=== PATIENT | male | born 1950 | race African-American/Black ===

== ENCOUNTER 2018-07-27 11:49 | Inpatient (IN) ==
[2018-07-27] MEDS ORDERED: CITRATE OF MAGNESIA PO STA (12:17)
--- NOTE | 2018-07-27 13:04 | CT ---
EXAM: CT of the abdomen pelvis without contrast History: Abdominal pain and constipation. Technique: Multiplanar CT images through the abdomen pelvis were obtained without the administration of IV contrast Findings: Lung bases are clear. No acute osseous abnormalities. Multiple metastatic sclerotic lesi ons are seen within the thoracic and lumbar spine as well as the sacrum and iliac bones. No gallstones identified by CT. Mild atherosclerotic vascular calcifications. No renal stones and n o hydronephrosis. Adrenal glands are unremarkable. No peripancreatic inflammation. No focal liver or splenic lesions are identified within limitations of a noncontrast study. The appendix is normal. Diverticulosis of the descending colon. Large amount of colonic stool especially seen distending t he rectosigmoid colon. There is mild perirectal inflammation. No free air and no ascites. Evaluati on for lymph nodes is limited due to the lack of contrast administration but no bulky adenopathy is s een. No bladder wall thickening. Prostate is not enlarged. Subcutaneous edema within the anterior abdominal wall probably from injections. Impression: 1. Large amount colonic stool consistent with constipation. 2. Multiple metastatic osseous lesions of unknown primary source.
[2018-07-27] MEDS ORDERED: NARCAN IM STA (13:22)
--- NOTE | 2018-07-27 15:36 | ED.PDOC ---
General ED Provider: Dr. KELLY TALBOT Chief Complaint: Constipation Stated Complaint: constipation/abdominal pain Time Seen by Physician: 12:00 (no B.M. X 2 WEEKS ) Mode of Arrival: Wheelchair Information Source: Patient Exam Limitations: No limitations Nursing and Triage Documentation Reviewed and Agree: Yes Does patient meet sepsis criteria?: No System Inflammatory Response Syndrome: Not Applicable Sepsis Protocol: For patient's 13 years and over: Temp is 96.8 and below OR 101 and greater Pulse >90 BPM Resp >20/minute Acutely Altered Mental Status Are patient's symptoms suggestive of a new infection, such as: -Pneumonia -Skin, Soft Tissue -Endocarditis -UTI -Bone, Joint Infection -Implantable Device -Acute Abdominal Infection -Wound Infection -Meningitis -Blood Stream Catheter Infection -Unknown GI Complaint Exam - Abdominal Pain Complaint/Exam Onset: Gradual Duration: 2 WEEKS Symptoms Are: Still present Timing: Intermittent Initial Severity: Moderate Current Severity: Moderate Location of Pain: Diffuse Radiates To: Denies: Chest, Back, Flank, LLQ, RLQ, Inguinal Character: Reports: Aching Aggravating: Reports: None Alleviating: Reports: None Associated Signs and Symptoms: Reports: Constipation. Denies: Diaphoresis, Fever, Cough, Chest pain, Dizziness, Back pain, Blood in stool, Dysuria, Urinary frequency, Decreased urine output, Decreased appetite, Discharge, Nausea , Vomiting, Diarrhea, Decreased activity Related History: Reports: Similar episode AAA Risk Factors: Reports: None Cardiac Risk Factors: Reports: None Testicular Torsion Risk Factors: Reports: None Surgical Obstruction Risk Factors: Reports: None Related Surgical History: Reports: None Abdominal Findings: Present: None Differential Diagnoses: Bowel Obstruction, Constipation Review of Systems - Review Of Systems Constitutional: Reports: Malaise, Weakness, Loss of appetite Eyes: Reports: No symptoms Ears, Nose, Mouth, Throat: Reports: No symptoms Respiratory: Reports: No symptoms Cardiac: Reports: No symptoms GI: Reports: Abdominal pain, Constipated : Reports: No symptoms Musculoskeletal: Reports: No symptoms Skin: Reports: No symptoms Neurological: Reports: No symptoms Endocrine: Reports: No symptoms Hematologic/Lymphatic: Reports: No symptoms All Other Systems: Reviewed and Negative Past Medical History - Past Medical History Previously Healthy: No Endocrine: Reports: Unknown Cardiovascular: Reports: Unknown Respiratory: Reports: None Hematological: Reports: Unknown Gastrointestinal: Reports: Other (CANCER SEE BELOW WITH METS) Genitourinary: Reports: None Neuro/Psych: Reports: None Musculoskeletal: Reports: None Cancer: Reports: Other (PANCREATIC) - Surgical History General Surgical History: Reports: None - Family History Family History: Reports: None - Social History Smoking Status: Former smoker Hx Substance Use: No Alcohol Screening: None - Immunizations Tetanus Shot up to Date: Yes Physical Exam - Physical Exam Appearance: Well-appearing, No pain distress, Well-nourished Eyes: MILLI, EOMI, Conjunctiva clear ENT: Ears normal, Nose normal, Oropharynx normal Respiratory: Airway patent, Breath sounds clear, Breath sounds equal, Respirations nonlabored Cardiovascular: RRR, Pulses normal, No rub, No murmur GI/: Soft, No masses, Bowel sounds normal, No Organomegaly, Tender Musculoskeletal: Normal strength, ROM intact, No edema, No calf tenderness Skin: Warm, Dry, Normal color Neurological: Sensation intact, Motor intact, Reflexes intact, Cranial nerves intact, Alert, Oriented Psychiatric: Affect appropriate, Mood appropriate Interpretation - Radiology Interpretation Radiology Interpretation By: Radiologist Radiology Results: Positive (CONSTIPATION) Physician Notification - Case Discussed Physician Notified: HOSTPITALIST Time of Notification: 15:36 Admit To: Inpatient Critical Care Note - Critical Care Note Total Time (mins): 0 Course - Course Hematology/Chemistry: 07/27/18 12:30 07/27/18 12:30 Orders, Labs, Meds: Lab Review 07/27/18 07/27/18 12:30 12:30 WBC 11.29 H RBC 3.19 L Hgb 8.5 L Hct 26.3 L MCV 82.4 MCH 26.6 L MCHC 32.3 RDW Coeff of Prashant 13.8 Plt Count 335 Immature Gran % (Auto) 1.0 Neut % (Auto) 80.0 Lymph % (Auto) 12.8 Vance % (Auto) 5.6 Eos % (Auto) 0.2 Baso % (Auto) 0.4 Immature Gran # (Auto) 0.1 Neut # (Auto) 9.0 H Lymph # (Auto) 1.5 Vance # (Auto) 0.6 Eos # (Auto) 0.0 Baso # (Auto) 0.1 Sodium 132.4 L Potassium 3.65 Chloride 97.4 L Carbon Dioxide 19.9 L Anion Gap 18.75 BUN 11.5 Creatinine 0.54 L Estimated GFR (MDRD) 184.00 BUN/Creatinine Ratio 21.29 Glucose 254.3 H Calcium 9.48 Total Bilirubin 0.74 AST 38.6 ALT 31.5 Alkaline Phosphatase 212.7 H Total Protein 8.10 Albumin 4.63 Globulin 3.47 Albumin/Globulin Ratio 1.33 Orders Category Date Time Status Enema [ED ENEMA/RECTAL TUBE] .ONCE EMERGENCY 07/27/18 12:18 Active CBC W/ AUTO DIFF Stat LAB 07/27/18 12:30 Completed COMPREHENSIVE METABOLIC PANEL Stat LAB 07/27/18 12:30 Completed Magnesium Citrate [Citrate of Magnesia] MEDS 07/27/18 12:17 Discontinued 10 oz PO ONCE STA Naloxone HCl [Narcan] MEDS 07/27/18 13:22 Discontinued 0.4 mg IM ONCE STA CT ABDOMEN/PELVIS WO CONTRAST Stat RADS 07/27/18 12:15 Completed Medications Discontinued Medications Generic Name Dose Route Start Last Admin Trade Name Freq PRN Reason Stop Dose Admin Magnesium Citrate 10 oz 07/27/18 12:17 07/27/18 13:39 Citrate Of Magnesia PO 07/27/18 12:18 10 oz ONCE STA Administration Naloxone HCl 0.4 mg 07/27/18 13:22 07/27/18 13:39 Narcan IM 07/27/18 13:23 0.4 mg ONCE STA Administration Vital Signs: Temp Pulse Resp BP Pulse Ox 07/27/18 11:49 99.3 F 114 H 20 160/83 H 96 Departure - Departure Time of Disposition: 15:37 Disposition: ADMITTED INPATIENT Discharge Problem: Constipation, Anemia Instructions: Constipation (ED) Condition: Good Pt referred to PMD for follow-up: Yes IPMP verified?: No Additional Instructions: Please call your Family Physician as soon as possible to schedule a follow-up appointment. Allergies/Adverse Reactions: Allergies No Known Allergies Allergy (Unverified 07/27/18 11:55) Home Medications: Ambulatory Orders Cefdinir 300 mg PO Q12H 07/27/18 Hydrocodone Bit/Acetaminophen [Lulu 10-325] 10 - 325 mg PO Q6H PRN 07/27/18 Hydromorphone HCl [Dilaudid] 2 mg PO Q4H PRN 07/27/18 Morphine Sulfate [Morphine Sulfate ER] 60 mg PO BID 07/27/18 Pregabalin [Lyrica] 100 mg PO TID 07/27/18 Trazodone HCl 1,000 mg PO BEDTIME 07/27/18 Disposition Discussed With: Patient
[2018-07-27] MEDS ORDERED: SODIUM CHLORIDE 1,000 ML IV SCH (16:00)
[2018-07-27] MEDS ORDERED: HYDROMORPHONE HCL 2 MG PO PRN (16:19)
[2018-07-27] MEDS ORDERED: NORCO 10-325 PO PRN (16:19)
[2018-07-27] MEDS ORDERED: DILAUDID PO PRN (16:25)
[2018-07-27] MEDS ORDERED: ZOFRAN 4 MG/2 ML IVP PRN (16:34)
[2018-07-27] MEDS ORDERED: ZOFRAN 4 MG/2 ML ONE (16:35)
[2018-07-27] MEDS ORDERED: DILAUDID 1 MG/ML SYRINGE IVP STA (16:39)
[2018-07-27] MEDS ORDERED: DILAUDID 1 MG/ML SYRINGE ONE (16:44)
[2018-07-27 17:00] VITALS: BMI 10.1
[2018-07-27] MEDS: DILAUDID 1 MG/ML SYRINGE IVP SCH ×4 (17:21→23:06)
[2018-07-27] MEDS ORDERED: INFUVITE ADULT IV ONE ×2 (17:34→18:28)
[2018-07-27] MEDS: OMNICEF PO SCH ×2 (17:35→20:45)
[2018-07-27] MEDS ORDERED: INFUVITE ADULT 10 ML in D5%-1/2NS-KCL 20 MEQ/L IV SOL 1,000 ML IV SCH (18:00)
[2018-07-27] MEDS ORDERED: POTASSIUM CHLORIDE 20 MEQ VIAL 20 MEQ, INFUVITE ADULT 10 ML in SODIUM CHLORIDE 1,000 ML IV SCH (18:30)
[2018-07-27] MEDS: INFUVITE ADULT 10 ML in SODIUM CHLORIDE 0.45%-KCL 20 MEQ 1,000 ML IV SCH (18:33)
[2018-07-27] MEDS: LYRICA PO SCH (20:45)
[2018-07-27] MEDS: MS CONTIN PO SCH (20:45)
[2018-07-27] MEDS ORDERED: NON-FORMULARY MEDICATION (Pregabalin [Lyrica] 100 MG) PO SCH (21:00)
[2018-07-27] MEDS ORDERED: DESYREL PO SCH (21:00)
[2018-07-27] MEDS ORDERED: NON-FORMULARY MEDICATION (Morphine Sulfate [Morphine Sulfate Er] 60 MG) PO SCH (21:00)
[2018-07-27] MEDS ORDERED: TRAZODONE HCL PO SCH (21:00)
[2018-07-28] MEDS: DILAUDID 1 MG/ML SYRINGE IVP SCH ×5 (00:56→12:17)
[2018-07-28 05:10] VITALS: BP 120/79; TEMP 98.3
[2018-07-28] MEDS ORDERED: INFUVITE ADULT IV ONE (06:03)
[2018-07-28] MEDS: INFUVITE ADULT 10 ML in SODIUM CHLORIDE 0.45%-KCL 20 MEQ 1,000 ML IV SCH (06:10)
[2018-07-28] MEDS: OMNICEF PO SCH (08:50)
[2018-07-28] MEDS: LYRICA PO SCH (08:50)
[2018-07-28] MEDS: MS CONTIN PO SCH (08:51)
[2018-07-28] MEDS ORDERED: MILK OF MAGNESIA PO SCH (09:00)
[2018-07-28] MEDS ORDERED: HYDROMORPHONE HCL 2 MG PO PRN (10:11)
[2018-07-28] MEDS ORDERED: DILAUDID PO PRN (10:13)
--- NOTE | 2018-07-30 14:00 | SSS ---
DATE OF SERVICE: 07/27/18 - ADMIT; 07/28/18 DISCHARGE CHIEF COMPLAINT: Abdominal pain, no bowel movements for the last 14 days. SOURCE: The patient plus daughter. HISTORY OF PRESENT ILLNESS The daughter told me that they came to [place] bringing her dad since they have some idea that his life is under challenge so he can enjoy. The patient developed lower abdominal pain and was brought to the emergency room and was seen at 11:49 a.m. The patient in the emergency room had CT scan of the abdomen and pelvis because of the lower abdominal pain suprapubic showing large amounts of colonic stool consistent with constipation, multiple metastatic osseous lesions of unknown primary probably prostate. This patient has prostate carcinoma known since 2007. He had a pancreatic carcinoma diagnosed in April 2018. This patient received an enema in the emergency room but I am not able to find what kind, whether it is a soap suds enema or saline. Narcan 0.4 mg IM and magnesium citrate 10 ozs. I was contacted by the emergency room M.D. for possible admission because of the abdominal pain which is probably secondary to the constipation. This patient was seen at the emergency room in [place], 07/21/18, because of abdominal pain described as burning and more or less upper abdominal. The patient was kept for a day or more at the hospital and discharged. The patient did complain of chest pain also at that time and the patient was judged to be secondary to the metastatic disease. Chemotherapy was suspended but the Keytruda is continued. The patient had burn right big toe treated at [facility] and [facility]. The problems aside from the prostatic carcinoma diagnosed 2007, pancreatic carcinoma diagnosed May 05, 2018 are diabeetes mellitus on insulin. GERD, hypertension, hyperlipidemia. FAMILY HISTORY: Sister had diabetes mellitus; mother had hypertension; grandfather had prostatic carcinoma. PAST PERSONAL HISTORY: Consisted of brain surgery, subdural hematoma and shoulder replacement surgery, right. MEDICATIONS: (prior to this admission) Hydrocodone/APAP 10/325 one q.6hr p.r.n. Cefdinir 300 mg capsule q.12hr Morphine Sulfate ER 60 mg twice a day Pregabalin 100 mg three times a day Trazodone 100 mg at bedtime Hydromorphone 2 mg q.4hr p.r.n. for pain NovoLog continue subcutaneously before meals Victoza 1.2 mg subcutaneously daily Zytiga 500 mg tablet two tablets daily Lipitor 10 mg daily Megestrol 40 mg/cc one cc twice a day Metformin 1000 mg twice a day Omeprazole 40 mg daily ALLERGIES: NKDA REVIEW OF SYSTEMS: CONSTITUTIONAL: The patient is alert with no chills, no fever. Pain and fatigue because of the pain. 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 No syncopal episode. No seizure events. VISUAL: Denies any blurred vision, double vision or loss of vision. RESPIRATORY: No cough, no shortness of breath at rest. AUDITORY: No tinnitus. No pain or drainage. CARDIOVASCULAR: Denies any chest pain, chest oppression. GI: The patient had lower abdominal pain, suprapubic, severe. He had vomited magnesium citrate given from the emergency room. : The patient is able to urinate and the bladder scan had 200 cc of urine only. MUSCULOSKELETAL: The patient does have pain probably from metastatic bone disease as identified on CT scan 07/27/18, thoracic lumbar, sacrum and iliac bones. This is probably most likely from the prostatic carcinoma diagnosed in 2007. INTEGUMENT: The patient has a second degree burn maybe third degree of the right big toe. He is followed by the [facility]. ENDOCRINE: Negative except the patient had diabetes mellitus probably type 1.5. He is taking an oral antidiabetic medication plus insulin and also a GLP1. HEMATOLOGY: No history of prolonged bleeding or spontaneous bleeding or ecchymosis. PSYCHIATRIC: Affect is more or less affected by the abdominal pain. The patient tries to cough but he appears miserable because of the lower abdominal pain. PHYSICAL EXAMINATION: GENERAL: We have a 68-year-old male seen at the emergency room initially and admitted because of persistent lower abdominal pain most likely secondary to constipation and large amount of stool in the rectosigmoid portion of the colon. The patient is on multiple narcotic medications to control the pain, metastatic. V/S: Temperature on admission to the floor is 98.4 oral, pulse 106, blood pressure left 197/108, right 204/105. This is probably triggered by the pain that the patient is experiencing. Respiratory rate 18, oxygen saturation 96 on room air. Height 6'2 and weighed 179 lbs in the emergency room. HEAD: Unremarkable. Scalp - no active dermatitis. Face is symmetrical and equal with no facial weakness, no significant tenderness in the frontomaxillary sinus areas to palpation and/or pressure. EYES: The eyeballs seem to be bulging. Sclerae nonicteric. Pupils are equal and reactive. Mouth unremarkable. Throat - no inflammation. No exudates. NECK: No masses, no adenopathies, no bruit. CHEST: Essentially symmetrical and equal with good expansion. LUNGS: Breath sounds are heard on both sides, diminished in both lower bases but no rales or wheezing. HEART: Audible and regular with good tones, somewhat distant. No murmurs. ABDOMEN: Somewhat protuberant and tympanitic. Bowel sounds are hyperactive. No bruit. Tender to pressure in the lower abdomen more than upper. RECTAL: Anal sphincter is competent. Stool is now in fragments and seems to be softer. Still a large amount of stool beyond my finger. LOWER EXTREMITIES: No significant edema both lower extremities. Right big toe has whitish eschar. This is just burnt tissue. No drainage at this time. Pedal pulses are absent. UPPER EXTREMITIES: Symmetrical and equal. ASSESSMENT: 1. LOWER ABDOMINAL PAIN, SECONDARY TO STOOL IMPACTION. 2. CONSTIPATION SECONDARY TO NARCOTIC MEDICATIONS TO CONTROL PAIN. 3. HISTORY OF PROSTATIC CARCINOMA DIAGNOSED 2007 WITH MULTIPLE METASTASES. 4. HISTORY OF PANCREATIC CARCINOMA DIAGNOSED APRIL 2018. 5. HISTORY OF HYPERTENSION. 6. HISTORY OF GERD. 7. HISTORY OF DIABETES MELLITUS 1.5. 8. HISTORY OF DYSLIPIDEMIA. 9. HISTORY OF RIGHT SHOULDER REPLACEMENT. 10.HISTORY OF SUBDURAL HEMATOMA EVACUATED. HOSPITAL COURSE: The patient while in the hospital was given clear liquids. The oral medications were discontinued and the Dilaudid was given intravenously beginning with 2 mg intravenously because of the abdominal pain which relieved some degree of pain. He was then continued every two hours with 1 mg. The nurses were instructed to make sure that his breathing is regular and not shallow and not very slow. If that happens, the medication will be postponed until the respiratory rate is within normal limits and also in good depth. The patient was given a Fleet's enema, oil retention as well as manual evacuation of the stool. The patient also was given Milk of Magnesia at 30 cc daily. He was given intravenous fluids consisting of 1/2 Saline plus 20 KCL plus MVI at 12 hours/rate per 1000. The patient had a good bowel movement in the childcare director hours about 5 to 5:40. Since then the patient's pain has declined significantly and his well-being was much better. I did see him about 11 o'clock in the morning 07/28/18 and the patient is feeling better and more cheerful. His lungs remained essentially the same as yesterday. The heart is regular and still distant. The abdomen is now soft with no significant tenderness. Bowel sounds are active and no bruit. Legs are essentially the same. No tenderness in the calf muscles. The big toe was no longer inspected so it was inspected yesterday. The patient's CBC showed severe anemia with RBC of 2.04, hemoglobin 8.2, hematocrit 25. Sodium and potassium slightly lower but not clinically significant. The blood sugar is lower this morning at 189.1. It was 254.3 on admission. The alkaline phosphatase is down to 191.7 from 212.7 partly due to hydration. Elevated alkaline phosphatase is most likely due to the bony metastasis most likely from prostatic carcinoma rather than pancreatic. The patient wanted to eat a solid diet and so was given a solid diet. The daughter did come and bring him home. The home place is about 1 hour and 20 minutes from [place]. I advised him to see the primary care provider and ask for a laxative that would be stronger to prevent him from constipating. I also advised the patient in spite of the fact that he is diabetic to try and eat three big prunes a day. It probably has less sugar the prune juice. The patient is to resume all his previous medications and discuss the medications with his primary care provider as soon as possible. FINAL DIAGNOSES: 1. LOWER ABDOMINAL PAIN SECONDARY CONSTIPATION, RESOLVED. 2. CHRONIC PAIN PROBABLY SECONDARY TO BONY METASTASIS, PROBABLY FROM PROSTATIC CARCINOMA. 3. PROSTATIC CARCINOMA DIAGNOSED 2007. 4. PANCREATIC CARCINOMA DIAGNOSED APRIL 2018. 5. HISTORY OF DIABETES MELLITUS, TYPE 1.5. 6. HISTORY OF HYPERTENSION NOW CONTROLLED. The patient's vital signs on 07/28/18 at 5 a.m. showed a temperature 98.3, pulse 78, blood pressure 120/79, respiratory rate 14, oxygen saturation 97 on room air. The patient felt relieved with a good evacuation of stool. Prognosis hasn' t changed however from the previous diagnosis. TIME SPENT: GREATER THAN 30 MINUTES MTDD
== END 2018-07-28 13:20 | disposition home or self-care (01) | DRG 812 ==
LOC: ED 11:49 → EDBD 11:49 → MEDSURG B 15:43 → UNDOADMIN 15:43
PROVIDERS: ADMIT General Practice; ATTEND General Practice
DX: D64.9 Anemia, unspecified (principal); C61 Malignant neoplasm of prostate; I10 Essential (primary) hypertension; K21.9 Gastro-esophageal reflux disease without esophagitis; E13.9 Other specified diabetes mellitus without complications; E78.5 Hyperlipidemia, unspecified; R10.9 Unspecified abdominal pain; R53.1 Weakness; R63.0 Anorexia; Z79.4 Long term (current) use of insulin
CPT/HCPCS: 36415; 80053; 82962; 85025; 93005; 93010; 96372; 99284